=== PATIENT | female | born 1960 | race American Indian/Alaskan Native ===

== ENCOUNTER 2017-03-24 10:17 | Emergency (ER) | payer MEDICAID ==
[2017-03-24 10:18] VITALS: BMI 29.2
[2017-03-24 10:50] VITALS: BP 166/98; PULSE 99; RESP 18; TEMP 98.1; O2SAT 97
--- NOTE | 2017-03-24 13:25 | ED PDOC ---
Arrival/HPI - General Chief Complaint: Lower Extremity Problem/Injury Time Seen by Provider: 03/24/17 10:25 Historian: Patient - History of Present Illness Narrative History of Present Illness (Text): 03/24/17 13:29 Patient with past medical history of diabetes and hypertension, reports 1 week history of atraumatic right knee pain and swelling. Otherwise: (-) "pop", (- ) instability, (-) other injury, (-) h/o gout, (-) other joint pain and swelling. Reports waking up with the pain and swelling and has been present since. Has no history of prior knee injury. Past Medical History - Provider Review Nursing Documentation Reviewed: Yes - Infectious Disease Hx of Infectious Diseases: None - Cardiac Hx Cardiac Disorders: Yes Hx Hypertension: Yes - Pulmonary Hx Respiratory Disorders: Yes Other/Comment: SMOKES CIGARETTES 1/2 A PPD - Neurological Hx Neurological Disorder: Yes Other/Comment: TRIGGER FINGER WITH CORTISONE INJECTIONS,REDDING'S PALSY - HEENT Hx HEENT Disorder: No - Renal Hx Renal Disorder: No - Endocrine/Metabolic Hx Diabetes Mellitus Type 2: Yes - Hematological/Oncological Hx Blood Disorders: No - Integumentary Hx Dermatological Disorder: Yes Hx Eczema: Yes - Musculoskeletal/Rheumatological Hx Musculoskeletal Disorders: Yes Hx Arthritis: Yes Hx Falls: No - Gastrointestinal Hx Gastrointestinal Disorders: No - Genitourinary/Gynecological Hx Genitourinary Disorders: No Other/Comment: FIBROIDS-PARTIAL HYSTERECTOMY,C/S X 2 - Psychiatric Hx Psychophysiologic Disorder: No Hx Anxiety: No Hx Bipolar Disorder: No Hx Depression: No Hx Emotional Abuse: No Hx Hallucinations: No Hx Panic Disorder: No Hx Post Traumatic Stress Disorder: No Hx Psychosis: No Hx Physical Abuse: No Hx Schizophrenia: No Hx Sexual Abuse: No Hx Substance Use: No - Surgical History Hx Hysterectomy: Yes (Partial) Hx Orthopedic Surgery: Yes - Anesthesia Hx Anesthesia: Yes Hx Anesthesia Reactions: No Hx Malignant Hyperthermia: No Family/Social History - Physician Review Nursing Documentation Reviewed: Yes Family/Social History: No Known Family HX Smoking Status: Never Smoked Hx Alcohol Use: No Hx Substance Use: No Allergies/Home Meds Allergies/Adverse Reactions: Allergies No Known Allergies Allergy (Verified 01/20/16 19:48) Home Medications: Home Meds Medication Instructions Recorded Confirmed Insulin Lispro Mix 75/25 [HumaLOG 28 units SC BID 01/20/16 03/24/17 Mix 75/25] Lisinopril [Zestril] 5 mg PO DAILY 01/20/16 03/24/17 MetFORMIN [glucOPHAGE] 1,000 mg PO BID 01/20/16 03/24/17 Alogliptin Benzoate [Alogliptin] 25 mg PO DAILY 03/24/17 03/24/17 Aspirin [[place] Aspirin] 81 mg .ROUTE DAILY 03/24/17 03/24/17 Glipizide [Glipizide ER] 2.5 mg PO DAILY 03/24/17 03/24/17 Review of Systems - Review of Systems Constitutional: Normal. absent: Fatigue, Weight Change, Fevers Musculoskeletal: Normal, Arthralgias, Joint Swelling. absent: Back Pain, Neck Pain Skin: Normal. absent: Rash, Pruritis, Skin Lesions Physical Exam - Physical Exam Narrative Physical Exam (Text): 03/24/17 13:31 GENERAL APPEARANCE: Patient is awake, alert, oriented x 3, in no acute distress. SKIN: Warm, dry; (-) cyanosis. LOWER EXTREMITY: (-) erythema, (+) slightly warm to touch, (-) tenderness of knee with (+) moderate effusion. Able to extend actively to 0 degrees; (-) instability on valgus or varus stress. Drawer sign (-). (-) distal neurovascular deficit. 2 point discrimination. Hip, thigh, leg and ankle: (- ) tenderness or limitation of motion. Vital Signs Temp Pulse Resp BP Pulse Ox 03/24/17 10:46 98.1 F 99 H 18 166/98 H 97 Medical Decision Making ED Course and Treatment: 03/24/17 13:32 57 yo F past medical history of hypertension and diabetes complaining of one- week history of right pain and swelling. X-ray right knee ordered, patient is refusing any analgesic medication at this time. On reevaluation, patient has not located in her room and is noted to be found in the entire emergency room. X-ray of the right knee not performed, patient likely eloped. - RAD Interpretation Radiology Orders: 03/24/17 11:49 KNEE RIGHT 2 VIEWS (AP & LAT) [RAD] Stat - PA / INSTRUCTIONAL DESIGNER / Resident Statement MD/DO has reviewed & agrees with the documentation as recorded. Disposition/Present on Arrival - Present on Arrival Any Indicators Present on Arrival: No History of DVT/PE: No History of Uncontrolled Diabetes: No Urinary Catheter: No History of Decub. Ulcer: No History Surgical Site Infection Following: None - Disposition Have Diagnosis and Disposition been Completed?: Yes Diagnosis: Knee pain, right Disposition: ELOPEMENT - ER ONLY Disposition Time: 13:10 Condition: STABLE Referrals: Debbi Porras [Primary Care Provider] - Follow up with primary
== END 2017-03-24 12:20 | disposition left against medical advice (07) ==
LOC: ED 10:17
DX: M25.561 Pain in right knee (principal)

== ENCOUNTER 2017-10-30 10:44 | Emergency (ER) | payer MEDICAID ==
[2017-10-30 10:45] VITALS: BMI 29.2
[2017-10-30 11:16] VITALS: TEMP 97.7
[2017-10-30] MEDS ORDERED: Naproxen 550 mg Tab PO SCH (11:30)
--- NOTE | 2017-10-30 11:39 | ED PDOC ---
Arrival/HPI - General Chief Complaint: Back Pain Time Seen by Provider: 10/30/17 10:59 Historian: Patient - History of Present Illness Narrative History of Present Illness (Text): 10/30/17 11:28 A 57 year old female, whose past medical history includes diabetes and lupus, presents to the emergency department complaining of lower back pain and left knee pain. Patient reports she injured her back and shoulder today after lifting her son out of his wheel chair. Patient denies any other injuries, fall , fever, chills, nausea, vomiting, abdominal pain, chest pain, shortness of breath or any other complaints. 10/30/17 17:24 Past Medical History - Provider Review Nursing Documentation Reviewed: Yes - Infectious Disease Hx of Infectious Diseases: None - Cardiac Hx Cardiac Disorders: Yes Hx Hypertension: Yes - Pulmonary Hx Respiratory Disorders: Yes Other/Comment: SMOKES CIGARETTES 1/2 A PPD - Neurological Hx Neurological Disorder: Yes Other/Comment: TRIGGER FINGER WITH CORTISONE INJECTIONS,REDDING'S PALSY - HEENT Hx HEENT Disorder: No - Renal Hx Renal Disorder: No - Endocrine/Metabolic Hx Endocrine Disorders: Yes Hx Diabetes Mellitus Type 2: Yes Hx Systemic Lupus Erythematosus: Yes - Hematological/Oncological Hx Blood Disorders: No - Integumentary Hx Dermatological Disorder: Yes Hx Eczema: Yes - Musculoskeletal/Rheumatological Hx Musculoskeletal Disorders: Yes Hx Arthritis: Yes Hx Falls: No - Gastrointestinal Hx Gastrointestinal Disorders: No - Genitourinary/Gynecological Hx Genitourinary Disorders: No Other/Comment: FIBROIDS-PARTIAL HYSTERECTOMY,C/S X 2 - Psychiatric Hx Psychophysiologic Disorder: No Hx Anxiety: No Hx Bipolar Disorder: No Hx Depression: No Hx Emotional Abuse: No Hx Hallucinations: No Hx Panic Disorder: No Hx Post Traumatic Stress Disorder: No Hx Psychosis: No Hx Physical Abuse: No Hx Schizophrenia: No Hx Sexual Abuse: No Hx Substance Use: No - Surgical History Hx Hysterectomy: Yes (Partial) Hx Orthopedic Surgery: Yes - Anesthesia Hx Anesthesia: Yes Hx Anesthesia Reactions: No Hx Malignant Hyperthermia: No Family/Social History - Physician Review Nursing Documentation Reviewed: Yes Family/Social History: No Known Family HX Smoking Status: Never Smoked Hx Alcohol Use: No Hx Substance Use: No Allergies/Home Meds Allergies/Adverse Reactions: Allergies No Known Allergies Allergy (Verified 10/30/17 11:12) Home Medications: Home Meds Medication Instructions Recorded Confirmed Insulin Lispro Mix 75/25 [HumaLOG 28 units SC BID 01/20/16 10/30/17 Mix 75/25] Lisinopril [Zestril] 5 mg PO DAILY 01/20/16 10/30/17 MetFORMIN [glucOPHAGE] 1,000 mg PO BID 01/20/16 10/30/17 Alogliptin Benzoate [Alogliptin] 25 mg PO DAILY 03/24/17 10/30/17 Aspirin [[place] Aspirin] 81 mg PO DAILY 03/24/17 10/30/17 Glipizide [Glipizide ER] 2.5 mg PO DAILY 03/24/17 10/30/17 Hydroxychloroquine Sulfate 200 mg PO BID 10/30/17 10/30/17 [Plaquenil] Review of Systems - Physician Review All systems were reviewed & negative as marked: Yes - Review of Systems Constitutional: absent: Fevers, Night Sweats Respiratory: absent: SOB Cardiovascular: absent: Chest Pain Gastrointestinal: absent: Abdominal Pain, Nausea, Vomiting Musculoskeletal: Back Pain (lower back), Other (left shoulder pain) Physical Exam Vital Signs Reviewed: Yes Vital Signs Temp Pulse Resp BP Pulse Ox 10/30/17 12:19 85 18 145/80 99 10/30/17 12:13 89 18 145/75 98 10/30/17 11:15 97.7 F 96 H 16 148/80 98 Temperature: Afebrile Blood Pressure: Normal Pulse: Tachycardic Respiratory Rate: Normal Appearance: Positive for: Well-Appearing, Non-Toxic, Comfortable Pain Distress: None Mental Status: Positive for: Alert and Oriented X 3 - Systems Exam Head: Present: Atraumatic, Normocephalic Pupils: Present: PERRL Extroacular Muscles: Present: EOMI Conjunctiva: Present: Normal Mouth: Present: Moist Mucous Membranes Neck: Present: Normal Range of Motion Respiratory/Chest: Present: Clear to Auscultation, Good Air Exchange. No: Respiratory Distress, Accessory Muscle Use Cardiovascular: Present: Regular Rate and Rhythm, Normal S1, S2. No: Murmurs Abdomen: Present: Normal Bowel Sounds. No: Tenderness, Distention, Peritoneal Signs Back: Present: Normal Inspection. No: Midline Tenderness, Paraspinal Tenderness Upper Extremity: Present: Normal Inspection, Normal ROM, NORMAL PULSES, Neurovascularly Intact. No: Cyanosis, Edema, Tenderness, Swelling, Erythema, Temperature Abnormalties, Deformity Lower Extremity: Present: Normal Inspection. No: Edema Neurological: Present: GCS=15, CN II-XII Intact, Speech Normal Skin: Present: Warm, Dry, Normal Color. No: Rashes Psychiatric: Present: Alert, Oriented x 3, Normal Insight, Normal Concentration Medical Decision Making ED Course and Treatment: 10/30/17 11:28 Impression: A 57 year old female with left shoulder and lower back pain Plan: -- Left shoulder xray -- Lumbar spine xray -- Flexeril and Naproxen -- Reassess and disposition Progress Notes: Report Date : 10/30/2017 13:15:35 PROCEDURE: Radiographs of the Left Shoulder Dictator : Bea Rosa MD IMPRESSION: No acute fracture or dislocation. Report Date : 10/30/2017 13:18:58 PROCEDURE: Radiographs of the Lumbar Spine. Dictator : Bea Rosa MD IMPRESSION: No acute fracture or spondylolysis. Multilevel degenerative disc disease, worse at L4-5 with degenerative grade 1 anterior listhesis of L4 on L5. 10/30/17 17:24 xr neg pain improved. mechanical injury, no indication for further w/u in er. - Lab Interpretations Lab Results: Lab Results 10/30/17 12:10: POC Glucose (mg/dL) 134 H - RAD Interpretation Radiology Orders: 10/30/17 11:28 LS SPINE AP/LAT [RAD] Stat SHOULDER LEFT [RAD] Stat - Medication Orders Current Medication Orders: Discontinued Medications Cyclobenzaprine HCl (Flexeril) 10 mg PO STAT STA Stop: 10/30/17 11:29 Last Admin: 10/30/17 11:39 Dose: 10 mg Naproxen (Anaprox Ds) 550 mg PO BID [facility] Last Admin: 10/30/17 11:39 Dose: 550 mg - Scribe Statement The provider has reviewed the documentation as recorded by the Belen Benitez Provider Scribe Attestation: All medical record entries made by the Scribe were at my direction and personally dictated by me. I have reviewed the chart and agree that the record accurately reflects my personal performance of the history, physical exam, medical decision making, and the department course for this patient. I have also personally directed, reviewed, and agree with the discharge instructions and disposition. Disposition/Present on Arrival - Present on Arrival Any Indicators Present on Arrival: No History of DVT/PE: No History of Uncontrolled Diabetes: No Urinary Catheter: No History of Decub. Ulcer: No History Surgical Site Infection Following: None - Disposition Have Diagnosis and Disposition been Completed?: Yes Diagnosis: Back pain, Shoulder pain Disposition: HOME/ ROUTINE Disposition Time: 01:00 Condition: STABLE Discharge Instructions (ExitCare): Acute Low Back Pain (ED), Shoulder Pain (ED) Additional Instructions: follow up with specialists. return to er with worsening symptoms or concerns. Prescriptions: Cyclobenzaprine [Cyclobenzaprine HCl] 10 mg PO DAILY PRN #10 tab PRN Reason: Muscle Spasm Naproxen [Naprosyn] 500 mg PO BID PRN #14 tablet PRN Reason: Pain, Mild (1-3) Referrals: Parul Ayala, [Non-Staff] - Follow up with primary Hans Kidd DO [Staff Provider] - Follow up with primary Pablo Barron MD [Staff Provider] - Follow up with primary Forms: [employer] (Mongolian)
[2017-10-30 12:13] VITALS: RESP 18
[2017-10-30 12:20] VITALS: BP 145/80; PULSE 85; O2SAT 99
--- NOTE | 2017-10-30 13:17 | RAD ---
PROCEDURE: Radiographs of the Left Shoulder HISTORY: Trauma COMPARISON: No prior. FINDINGS: BONES: There is diffuse bone demineralization. There is no acute fracture or bone destruction. JOINTS: There is mild degenerative osteoarthrosis in the acromioclavicular and glenohumeral joints. SOFT TISSUES: Normal. OTHER FINDINGS: None. IMPRESSION: No acute fracture or dislocation.
--- NOTE | 2017-10-30 13:20 | RAD ---
PROCEDURE: Radiographs of the Lumbar Spine. HISTORY: Trauma COMPARISON: No prior. FINDINGS: BONES: There is degenerative grade 1 anterior listhesis of L4 on L5. There is straightening of the lumbar spine with loss of normal lumbar lordosis. There is no acute fracture or spondylolysis. Bone mineralization is normal. DISC SPACES: There is multilevel degenerative disc disease with anterior spurring, reduced disc heights and multilevel facet arthropathy, worse at L4-5. OTHER FINDINGS: There are no pathologic soft tissue calcifications. There are multiple phleboliths in the pelvis. IMPRESSION: No acute fracture or spondylolysis. Multilevel degenerative disc disease, worse at L4-5 with degenerative grade 1 anterior listhesis of L4 on L5.
== END 2017-10-30 13:13 | disposition home or self-care (01) ==
LOC: ED 10:44
DX: M54.5 Low back pain (principal); M25.512 Pain in left shoulder; E11.9 Type 2 diabetes mellitus without complications